=== PATIENT | male | born 1995 | race Two or more races ===

== ENCOUNTER 2018-06-05 13:48 | Emergency (ER) | payer SELFPAY ==
[~2018-06-05] VITALS: Ht 172.7 cm; Wt 68.0 kg
[~2018-06-05 13:48] MED LIST: TYLENOL
[2018-06-05 14:18] VITALS: BP 115/78
== END 2018-06-05 15:34 | disposition home or self-care (01) ==
LOC: ER 13:54
DX: T15.91XA Foreign body on external eye, part unspecified, right eye, initial encounter (principal); X58.XXXA Exposure to other specified factors, initial encounter; Y93.89 Activity, other specified; Y99.8 Other external cause status; Y92.89 Other specified places as the place of occurrence of the external cause
CPT/HCPCS: 65220

== ENCOUNTER 2018-12-30 12:25 | Emergency (ER) | payer MEDICAID ==
[~2018-12-30] VITALS: Ht 175.3 cm; Wt 63.5 kg
[2018-12-30 13:17] LABS: Basophils # (auto) 0 uL; Basophils % (auto) 0.3 % (0.0-2.0); Eosinophils # (auto) 0 uL; Eosinophils % (auto) 0.1 % (0.0-7.0); Hematocrit 50.8 % (41.0-53.0); Hemoglobin 17.3 g/dL (13.5-17.5); Lymphocytes # (auto) 1.6 uL; Lymphocytes % (auto) 13.8 % (10.0-50.0); Mean Corpuscular Volume 85.2 fL (80.0-100.0); Monocytes % (auto) 8.2 % (0.0-12.0); Neutrophils # (auto) 9.1 uL; Neutrophils % (auto) 77.6 % (37.0-80.0); Nucleated Red Blood Cells % 0.1 %; Platelet Count (auto) 321 10^3/uL (140-450); Red Blood Cells 5.96 10^6/uL (4.5-5.90); Red Cell Distribution Width 13.7 % (11.8-14.3); White Blood Cell 11.7 10^3/uL (4.4-10.8)
[2018-12-30 13:27] LABS: Albumin 4.9 g/dL (3.4-5.0); Calcium 9.6 mg/dL (8.5-10.1)
[2018-12-30 13:29] LABS: Bilirubin, Total 2.3 mg/dL (0.2-1.0); Total Protein 8.7 g/dL (6.4-8.2)
[2018-12-30] MEDS ORDERED: SODIUM CHLORIDE 0.9% 1,000 ML IV ONE ×2 (14:20)
[2018-12-30] MEDS ORDERED: LORazepam 2MG/ML-1ML VIAL IV ONE (14:30)
[2018-12-30] MEDS ORDERED: POTASSIUM EFFERVESENT TAB 25 MEQ PO ONE (16:00)
[2018-12-30 16:37] VITALS: BP 125/68
== END 2018-12-30 16:41 | disposition home or self-care (01) ==
LOC: ER 12:25
DX: F41.9 Anxiety disorder, unspecified (principal); F12.10 Cannabis abuse, uncomplicated; F17.210 Nicotine dependence, cigarettes, uncomplicated
CPT/HCPCS: 36415; 80053; 82150; 83690; 85025; 94761; 96374; 99283; J2060; J7030

== ENCOUNTER 2021-05-28 09:35 | Emergency (ER) | payer MEDICAID ==
[~2021-05-28] VITALS: Ht 170.2 cm; Wt 68.0 kg
[2021-05-28 11:59] VITALS: BP 129/82
== END 2021-05-28 12:53 | disposition home or self-care (01) ==
LOC: ER 09:35
DX: S22.32XA Fracture of one rib, left side, initial encounter for closed fracture (principal); F17.210 Nicotine dependence, cigarettes, uncomplicated; Y04.2XXA Assault by strike against or bumped into by another person, initial encounter; Y93.89 Activity, other specified; Y92.89 Other specified places as the place of occurrence of the external cause; Y99.8 Other external cause status
CPT/HCPCS: 71101

== ENCOUNTER 2022-07-02 14:40 | Emergency (ER) | payer MEDICAID ==
[~2022-07-02] VITALS: Ht 160 cm; Wt 70.0 kg
[2022-07-02] MEDS ORDERED: levoFLOXacin 500MG 100 ML IV ONE (15:30)
[2022-07-02] MEDS ORDERED: SODIUM CHLORIDE 0.9% 1,000 ML IVB ONE (15:30)
[2022-07-02] MEDS ORDERED: HYDROmorphone HCL 2 MG/ML VL/or syr IV ONE (15:30)
[2022-07-02] MEDS ORDERED: ONDANSETRON HCL 4 MG/2 ML VIAL IV ONE (15:30)
[2022-07-02 15:57] LABS: Basophils # (auto) 0.1 10 ^3/uL (0-0.2); Basophils % (auto) 0.3 % (0.0-2.0); Eosinophils # (auto) 0 10 ^3/uL (0-0.8); Hematocrit 40.4 % (41.0-53.0); Hemoglobin 13.5 g/dL (13.5-17.5); Lymphocytes # (auto) 0.9 10 ^3/uL (0.4-5.4); Lymphocytes % (auto) 5.6 % (10.0-50.0); Mean Corpuscular Hgb Conc. 33.6 g/dL (32.0-36.0); Mean Corpuscular Volume 83.3 fL (80.0-100.0); Monocytes % (auto) 6.4 % (0.0-12.0); Neutrophils # (auto) 14.1 10 ^3/uL (1.6-8.6); Neutrophils % (auto) 87.7 % (37.0-80.0); Red Blood Cells 4.84 10^6/uL (4.5-5.90); Red Cell Distribution Width 13.1 % (11.8-14.3)
[2022-07-02 16:13] LABS: Albumin 3.2 g/dL (3.4-5.0); Anion Gap 9 (5-15); Calcium 9.2 mg/dL (8.5-10.1); Carbon Dioxide 25 mmol/L (21-32); Chloride 105 mmol/L (98-107); Glucose 95 mg/dL (74-106); Potassium 3.7 mmol/L (3.5-5.1); Sodium 139 mmol/L (136-145)
[2022-07-02 16:16] LABS: Blood Alcohol < 3.0 mg/dL (0-5); GFR African American 131 mL/min; GFR Non-African American 108 mL/min
[2022-07-02 16:19] LABS: Alanine Aminotransferase 28 U/L (16-61); Alkaline Phosphatase 84 U/L (45-117); Aspartate Aminotransferase 21 U/L (15-37); Bilirubin, Total 0.9 mg/dL (0.2-1.0)
[2022-07-02 19:02] LABS: BUN/Creatinine Ratio 8.8; Blood Urea Nitrogen 8 mg/dL (7-18)
[2022-07-02] MEDS ORDERED: SODIUM CHLORIDE 0.9% 1,000 ML IV ONE (20:15)
[2022-07-02 21:41] VITALS: BP 111/59
[2022-07-02] MEDS ORDERED: LEVO500T31 PO (21:55)
[2022-07-02] MEDS ORDERED: IBUPROFEN 600 MG TAB PO ONE (22:00)
== END 2022-07-02 22:15 | disposition home or self-care (01) ==
LOC: ER 14:40
DX: J18.9 Pneumonia, unspecified organism (principal); E86.0 Dehydration; D72.829 Elevated white blood cell count, unspecified; F17.210 Nicotine dependence, cigarettes, uncomplicated; F12.10 Cannabis abuse, uncomplicated; R51.9 Headache, unspecified; Z20.822 Contact with and (suspected) exposure to COVID-19
CPT/HCPCS: 36415; 70450; 71046; 74176; 80053; 80320; 82962; 84484; 85025; 87426; 87804; 93005; 96361; 96365; 96375; 99285; J1170; J1956; J2405; J7030

== ENCOUNTER 2024-03-25 07:00 | Emergency (ER) | payer MEDICAID ==
[~2024-03-25] VITALS: Ht 172.7 cm; Wt 70.1 kg
[~2024-03-25 07:00] MED LIST changes: +LEVO500T31 PO
[2024-03-25 07:33] VITALS: BP 132/66; PULSE 56; RESP 18; O2SAT 100
== END 2024-03-25 08:47 | disposition left against medical advice (07) ==
LOC: ER 07:00
DX: S61.217A Laceration without foreign body of left little finger without damage to nail, initial encounter (principal); R20.0 Anesthesia of skin; Z53.21 Procedure and treatment not carried out due to patient leaving prior to being seen by health care provider; X58.XXXA Exposure to other specified factors, initial encounter; Y93.89 Activity, other specified; Y92.89 Other specified places as the place of occurrence of the external cause; Y99.8 Other external cause status

== ENCOUNTER 2024-03-26 10:41 | Emergency (ER) | payer SELFPAY ==
[~2024-03-26] VITALS: Ht 175.3 cm; Wt 69.4 kg
[2024-03-26 11:49] VITALS: BP 127/72; PULSE 62; RESP 16; TEMP 98; O2SAT 98
[2024-03-26] MEDS: KETOROLAC TROMETH 30 MG/ML 1ML VIAL IM ONE (12:09)
== END 2024-03-26 13:33 | disposition home or self-care (01) ==
LOC: ER 10:41
DX: S63.92XA Sprain of unspecified part of left wrist and hand, initial encounter (principal); S61.217A Laceration without foreign body of left little finger without damage to nail, initial encounter; F12.90 Cannabis use, unspecified, uncomplicated; F17.210 Nicotine dependence, cigarettes, uncomplicated; Z79.899 Other long term (current) drug therapy; W23.1XXA Caught, crushed, jammed, or pinched between stationary objects, initial encounter; Y93.89 Activity, other specified; Y92.89 Other specified places as the place of occurrence of the external cause; Y99.8 Other external cause status
CPT/HCPCS: 12001; 73130; 96372; 99283; J1885

== ENCOUNTER 2024-05-19 11:38 | Emergency (ER) | payer SELFPAY ==
[~2024-05-19] VITALS: Ht 172.7 cm; Wt 66.0 kg
[2024-05-19 13:27] VITALS: TEMP 97.8
[2024-05-19] MEDS: PROCHLORPERAZINE EDISYLATE 5 MG/ML 2ML VIAL IV ONE (13:29)
[2024-05-19 13:31] LABS: Eosinophils # (auto) 0.1 10 ^3/uL (0-0.8); Eosinophils % (auto) 1.1 % (0.0-7.0); Hemoglobin 19.1 g/dL (13.5-17.5); Lymphocytes # (auto) 1.7 10 ^3/uL (0.4-5.4); Monocytes # (auto) 0.7 10 ^3/uL (0-1.3); Monocytes % (auto) 8.4 % (0.0-12.0); Neutrophils # (auto) 6.4 10 ^3/uL (1.6-8.6); Nucleated Red Blood Cells % 0.1 %
[2024-05-19] MEDS: MORPHINE SULFATE 4 MG/ML SYR/VIAL IV ONE (13:32)
[2024-05-19 13:34] LABS: Basophils # (auto) 0.1 10 ^3/uL (0-0.2); Basophils % (auto) 0.6 % (0.0-2.0); Hematocrit 55.1 % (41.0-53.0); Lymphocytes % (auto) 18.9 % (10.0-50.0); Mean Corpuscular Hemoglobin 30.2 pg (28.0-32.0); Mean Corpuscular Hgb Conc. 34.6 g/dL (32.0-36.0); Mean Corpuscular Volume 87.1 fL (80.0-100.0); Platelet Count (auto) 387 10^3/uL (140-450); Red Blood Cells 6.33 10^6/uL (4.5-5.90); Red Cell Distribution Width 13.4 % (11.8-14.3)
[2024-05-19 13:45] LABS: Alanine Aminotransferase 18 U/L (7-40); Albumin 5.6 g/dL (3.2-4.8); Alkaline Phosphatase 76 U/L (46-116); Anion Gap 8 (5-15); Aspartate Aminotransferase 18 U/L (13-40); BUN/Creatinine Ratio 9.6 (10.0-20.0); Blood Urea Nitrogen 9 mg/dL (9-23); Calcium 10.4 mg/dL (8.7-10.4); Carbon Dioxide 27 mmol/L (20-31); Chloride 107 mmol/L (98-107); Glucose 79 mg/dL (74-106); Lipase 29 U/L (12-53); Potassium 4.1 mmol/L (3.5-5.1); Sodium 142 mmol/L (136-145)
[2024-05-19 13:57] VITALS: BP 145/84; PULSE 98; RESP 19; O2SAT 96
[2024-05-19 17:02] LABS: Urine Bacteria None Seen /hpf (None Seen)
[2024-05-19 17:20] LABS: Urine Blood Negative /uL (Negative); Urine Clarity Ex.Turbid (Clear); Urine Color Orange (Yellow); Urine Mucus MANY (None Seen); Urine Protein, UAD 2+ (Negative); Urine Specific Gravity 1.028 (1.001-1.035); Urine Urobilinogen Normal (Negative); Urine WBC 5 /hpf (0 - 3); Urine pH 5.5 (5.0-9.0)
[2024-05-19 17:32] LABS: Amphetamine Screen, Urine Neg (NEGATIVE); Barbiturate Scree,Urine Neg (NEGATIVE); Benzodiazephine Screen, Urine Neg (NEGATIVE); Cocaine Screen, Urine Pos (NEGATIVE)
[2024-05-19 17:33] LABS: Opiate Scree,Urine Pos (NEGATIVE); Phencyclidine Screen, Urine Neg (NEGATIVE)
[2024-05-19 17:34] LABS: Cannabinoid Screen, Urine Pos (NEGATIVE)
== END 2024-05-19 16:58 | disposition left against medical advice (07) ==
LOC: ER 11:38
DX: R10.13 Epigastric pain (principal); F17.210 Nicotine dependence, cigarettes, uncomplicated; Z79.899 Other long term (current) drug therapy
CPT/HCPCS: 36415; 80053; 80307; 81001; 83690; 85025; 96374; 96375; 99284; J0780; J2270